=== PATIENT | female | born 1990 | race Caucasian/White ===

== ENCOUNTER 2022-11-14 17:48 | Emergency (ER) | payer MEDICAID ==
[~2022-11-14] VITALS: Ht 162.6 cm; Wt 65.0 kg
[2022-11-14 17:52] VITALS: BP 150/84
[2022-11-14] MEDS ORDERED: LIDOcaine 1% W/epiNEPHrine 1:200,000 10ml vial IJ ONE (19:35)
[2022-11-14] MEDS ORDERED: sulfamethoxazole/trimethoprim DS (800/160mg) tablet PO ONE (19:35)
[2022-11-14] MEDS ORDERED: LIDOcaine/epinephrine/tetracaine TOPICAL sol 3 ML syringe TOP ONE (19:35)
[2022-11-14] MEDS ORDERED: LIDOcaine 1% W/epiNEPHrine 1:100,000 20ml vial IJ ONE (19:40)
[2022-11-14] MEDS ORDERED: LIDOCAINE 2%/EPI 1:100,000 inj. Multi-dose 20 ML VIAL SQ ONE (19:50)
[2022-11-14] MEDS ORDERED: SULF1TAB49 PO (20:02)
[2022-11-15] MEDS ORDERED: TRAM50TA2 PO (11:58)
== END 2022-11-15 06:51 | disposition home or self-care (01) ==
LOC: ER 17:50
DX: L02.411 Cutaneous abscess of right axilla (principal); Z88.0 Allergy status to penicillin
CPT/HCPCS: 10060; 87070; 87077; 99283; J3490; 87186; A6449

== ENCOUNTER 2022-11-15 10:13 | Emergency (ER) | payer MEDICAID ==
[~2022-11-15] VITALS: Ht 162.6 cm; Wt 65.8 kg
[~2022-11-15 10:13] MED LIST: SULF1TAB49 PO
[2022-11-15 10:16] VITALS: BP 118/77
[2022-11-15] MEDS ORDERED: TRAM50TA2 PO (11:58)
[2022-11-15] MEDS ORDERED: ketorolac trometh inj. 60 MG/2 ML VIAL IM ONE (12:15)
== END 2022-11-15 12:42 | disposition home or self-care (01) ==
LOC: ER 10:13
DX: L02.411 Cutaneous abscess of right axilla (principal); Z88.0 Allergy status to penicillin; Z79.899 Other long term (current) drug therapy
CPT/HCPCS: 96372; 99283; J1885

== ENCOUNTER 2022-12-27 09:25 | Day surgery (SDC) | payer MEDICAID ==
[~2022-12-27] VITALS: Ht 162.6 cm; Wt 66.4 kg
[2022-12-27 09:30] VITALS: BP 108/72
[2022-12-27] MEDS ORDERED: fentaNYL/PF 50MCG/1 ML 2ML syringe ONE (10:58)
[2022-12-27] MEDS ORDERED: MIDAZolam 1 MG/ML 5ML VIAL ONE (10:58)
[2022-12-27] MEDS ORDERED: LIDOcaine Viscous 15ml cup ONE (10:58)
[2022-12-27 11:36] VITALS: BP 109/58
[2022-12-27 11:46] VITALS: BP 98/57
[2022-12-27 12:06] VITALS: BP 104/64
== END 2022-12-27 12:15 | disposition home or self-care (01) ==
LOC: GI LAB 09:25
PROVIDERS: ATTEND Internal Medicine Gastroenterology
DX: R13.10 Dysphagia, unspecified (principal); K29.50 Unspecified chronic gastritis without bleeding; K22.89 Other specified disease of esophagus; K44.9 Diaphragmatic hernia without obstruction or gangrene; K20.80 Other esophagitis without bleeding; Z88.0 Allergy status to penicillin; Z98.890 Other specified postprocedural states
CPT/HCPCS: 43239; 99152; J2250; J3010; J7030; Z7512; A4620

== ENCOUNTER 2022-12-30 11:54 | Emergency (ER) | payer MEDICAID ==
[~2022-12-30] VITALS: Ht 162.6 cm; Wt 66.4 kg
[2022-12-30 12:14] LABS: BASOPHILS % (AUTO) 0.3 % (0-1); EOSINOPHILS % (AUTO) 0.7 % (0-6); HEMATOCRIT 40.9 % (35.0-45.0); HEMOGLOBIN 13.4 g/dl (12.0-16.0); LYMPHOCYTES # (AUTO) 1.5 X10'3 (1.1-4.8); LYMPHOCYTES % (AUTO) 22.7 % (21-51); MEAN CORPUSCULAR HEMOGLOBIN 27.9 PG (27.0-31.0); MEAN CORPUSCULAR HGB CONC 32.7 g/dL (33.0-36.5); MEAN CORPUSCULAR VOLUME 85.2 FL (78-98); MEAN PLATELET VOLUME 7.3 FL (7.4-10.4); MONOCYTES % (AUTO) 15.2 % (2-12); NEUTROPHILS % (AUTO) 61.1 % (42-75); PLATELET COUNT 322 X10'3 (140-440); WHITE BLOOD COUNT 6.6 X10'3 (4.5-11.0)
[2022-12-30 12:30] LABS: ALANINE AMINOTRANSFERASE 21 U/L (12-78); ALBUMIN 4.3 G/DL (3.4-5.0); ALBUMIN/GLOBULIN RATIO 1.2 (1.1-1.5); ALKALINE PHOSPHATASE 89 IU/L (46-116); ANION GAP 9 (8-16); ASPARTATE AMINO TRANSFERASE 18 U/L (10-37); BILIRUBIN,TOTAL 0.4 MG/DL (0.1-1.0); BLOOD UREA NITROGEN 9 MG/DL (7-18); BUN/CREATININE RATIO 18.8 (6.6-38.0); CALCIUM 9.3 MG/DL (8.5-10.1); CHLORIDE 105 MMOL/L (99-107); CREATININE 0.48 MG/DL (0.40-0.90); GLUCOSE 101 MG/DL (70-104); POTASSIUM 3.9 MMOL/L (3.5-5.1); SODIUM 140 MMOL/L (135-145); TOTAL PROTEIN 7.9 G/DL (6.4-8.2); eGFR > 90 ML/MIN
[2022-12-30 12:44] LABS: TOTAL CELLS COUNTED 100
[2022-12-30 12:45] LABS: ELLIPTOCYTES 1+; PLATELET ESTIMATE NORMAL
--- NOTE | 2022-12-30 13:33 | NUR ---
Patient seen in [facility] by provider. Sent back to lobby. Patient waiting for exam room in main ED.
[2022-12-30 15:05] VITALS: BP 118/84
[2022-12-30] MEDS ORDERED: PROP10TA10 PO (15:21)
[2023-01-01 08:11] LABS: THYROID PEROXIDASE AB 21 IU/mL (0-34); TRIIODOTHYRONINE (T3) 186 ng/dL (71-180)
== END 2022-12-30 15:48 | disposition home or self-care (01) ==
LOC: ER 11:54
DX: R00.2 Palpitations (principal); R00.0 Tachycardia, unspecified; R42 Dizziness and giddiness; R11.0 Nausea; Z88.0 Allergy status to penicillin
CPT/HCPCS: 36415; 80053; 83735; 83880; 84439; 84443; 84480; 84484; 85007; 85025; 86376; 93005; 99284

== ENCOUNTER 2024-09-06 09:42 | Outpatient (CLI) | payer MEDICAID | END 2024-09-06 23:59 | disposition home or self-care (01) | LOC: 64 CT 09:42 | PROVIDERS: ATTEND Family Medicine | DX: J34.89 Other specified disorders of nose and nasal sinuses (principal); J34.2 Deviated nasal septum | CPT/HCPCS: 70486 ==